=== PATIENT | female | born 1960 | race Caucasian/White ===

== ENCOUNTER → 2017-12-20 | Outpatient (CLI) | payer BC ==
[~2017-12-20] MED LIST: ATOR-24 PO; DULO60CA44 PO; FENO160T PO; HPRIS5M SQ; INSDGIPEN SC; LEVO88TA3 PO; LISI-729 PO; MRPIS4 IV; NVLGIPEN SC; NXM/40 PO; RXC5 PO
--- NOTE | 2017-12-20 12:34 | DIAGNOSTIC IMAGING REPORT ---
HEAD WITHOUT CONTRAST (CT) CLINICAL HISTORY: 57 years-old Female presenting with GAIT ABNORMALITY, dizziness. TECHNIQUE: Multidetector CT imaging of the head was performed without the use of intravenous contrast. IV contrast: None. A dose lowering technique was used consistent with the principles of ALARA (as low as reasonably achievable). COMPARISON: None. CT DOSE (mGy.cm): The estimated cumulative dose is 614.27 mGy.cm. FINDINGS: Lens Finisher topogram: Unremarkable. Ventricles and sulci normal in size. Brain parenchyma normal in appearance with preserved celaya-white differentiation. No mass effect or midline shift. No hemorrhage or acute territorial infarct. No extra-axial fluid collection. Paranasal sinuses and mastoid air cells clear. Calvarium intact. IMPRESSION: 1. No acute intracranial abnormality. Electronically signed by: Napoleon Alexandre M.D. 12/20/2017 12:33 PM Dictated Date/Time: 12/20/2017 12:31 PM
== END | disposition home or self-care (01) ==
LOC: C.CTS 12:18
PROVIDERS: ATTEND Psychiatry & Neurology Neurology
DX: E11.42 Type 2 diabetes mellitus with diabetic polyneuropathy (principal); R26.9 Unspecified abnormalities of gait and mobility; Z89.411 Acquired absence of right great toe